=== PATIENT | male | born 1950 | race Caucasian/White ===

== ENCOUNTER 2017-05-21 18:08 | Emergency (ER) | payer BC, OTHER ==
[~2017-05-21] VITALS: Ht 180.3 cm; Wt 94.8 kg
[2017-05-21 18:08] VITALS: BP_SYST 145
[~2017-05-21 18:08] MED LIST: HYDR50TA3 PO; LISI40TA4 PO
--- NOTE | 2017-05-21 18:08 | NUR ---
Placed in room 04. Placed on monitoring specialist, blood pressure machine and pulse oximeter. To gown for exam. Side rails up. Report given to BISI Tijerina.
--- NOTE | 2017-05-21 18:08 | NUR ---
Pt report received from BISI Hickey. Pt states that while sitting down to eat dinner with his , he felt dizzy with cold sweats and layed his head down. Pt states "dizzy spell" lasted about 10 minutes, but denies LOC. Denies N/V, no c/o pain or discomfort at this time.
--- NOTE | 2017-05-21 19:05 | NUR ---
Patient stable, no signs of distress noted. Vital signs within therapeutic range. Will continue to monitor pt.
--- NOTE | 2017-05-21 19:30 | NUR ---
ER Dr. Nuno at bedside examining patient.
[2017-05-21 19:41] LABS: BASOPHILS # (AUTO) 0.1 K/uL (0.0-0.2); BASOPHILS % (AUTO) 0.6 % (0.0-2.0); EOSINOPHILS # (AUTO) 0.1 K/uL (0.0-0.4); EOSINOPHILS % (AUTO) 0.6 % (0.0-4.0); HEMATOCRIT 47.4 % (36-54); HEMOGLOBIN 15.7 g/dL (14.0-18.0); LYMPHOCYTES # (AUTO) 1.3 K/uL (1.0-5.5); LYMPHOCYTES % (AUTO) 11.7 % (20.5-51.5); MEAN CORPUSCULAR HEMOGLOBIN 31 pg (27-31); MEAN CORPUSCULAR HGB CONC 33 % (32-36); MEAN CORPUSCULAR VOLUME 95 fL (79.0-98.0); MONOCYTES # (AUTO) 0.6 K/uL (0.0-1.0); MONOCYTES % (AUTO) 5.3 % (1.7-9.3); NEUTROPHILS # (AUTO) 8.8 K/uL (1.8-7.7); NEUTROPHILS % (AUTO) 81.8 % (40.0-70.0); PLATELET COUNT (AUTO) 170 K/uL (130-430); RED CELL DISTRIBUTION WIDTH 12.2 % (9.0-15.0); WHITE BLOOD COUNT (AUTO) 10.9 K/uL (4.8-10.8)
[2017-05-21 19:42] LABS: CALCIUM 9.6 mg/dL (8.4-11.0); CREATININE 1.27 mg/dL (0.55-1.30); POTASSIUM 4.1 mmol/L (3.5-5.1)
[2017-05-21 19:47] LABS: ALBUMIN 4.1 g/dL (3.4-4.8); TOTAL BILIRUBIN 0.5 mg/dL (0.0-1.0)
--- NOTE | 2017-05-21 20:08 | NUR ---
Patient stable, no signs of distress noted. Vital signs within therapeutic range.
--- NOTE | 2017-05-21 20:40 | NUR ---
Orthostatic vital signs done. Lying down on bed: HR 66, O2 97%, RR 16, BP 120/65, temp 98.4 F. Standing up without assistance: HR 71, O2 98%, RR 16, BP 129/72, temp 98.4 F.
[2017-05-21 21:10] VITALS: BP_SYST 128
--- NOTE | 2017-05-21 21:10 | NUR ---
Patient given written and verbal discharge instructions and verbalizes understanding. ER MD discussed with patient the results and treatment provided. Patient in stable condition. ID arm band removed. Rx of given. Pain Scale 0/10. Opportunity for questions provided and answered.
== END 2017-05-21 21:10 | disposition home or self-care (01) ==
LOC: SED 18:08
DX: R55 Syncope and collapse (principal); I10 Essential (primary) hypertension
CPT/HCPCS: 36415; 80053; 83880; 84484; 85025; 93005; 99285

== ENCOUNTER 2021-08-28 06:42 | Observation (INO) | payer OTHER, SELFPAY ==
[~2021-08-28] VITALS: Ht 180.3 cm; Wt 90.7 kg
[~2021-08-28 06:42] MED LIST changes: -HYDR50TA3 PO; +HYDR50TA4 PO; +LISI40TA13 PO; -LISI40TA4 PO
[2021-08-28 06:43] VITALS: BP_SYST 153
[2021-08-28] MEDS ORDERED: ONDANSETRON HCL 4 MG/2 ML VIAL IVP ONE (07:00)
[2021-08-28] MEDS ORDERED: NITROGLYCERIN 1 INCH (GM) OINT. TD ONE (07:00)
[2021-08-28] MEDS ORDERED: MORPHINE 2 MG/ML INJ. SYRINGE IVP ONE (07:00)
[2021-08-28] MEDS ORDERED: ASPIRIN 81 MG TAB.CHEW PO ONE (07:00)
[2021-08-28 07:03] LABS: BASOPHILS % (AUTO) 0.5 % (0.0-2.0); EOSINOPHILS # (AUTO) 0.1 K/uL (0.0-0.4); EOSINOPHILS % (AUTO) 1.1 % (0.0-4.0); HEMATOCRIT 46.9 % (36-54); HEMOGLOBIN 16.3 g/dL (14.0-18.0); LYMPHOCYTES # (AUTO) 1.2 K/uL (1.0-5.5); LYMPHOCYTES % (AUTO) 16.7 % (20.5-51.5); MEAN CORPUSCULAR HEMOGLOBIN 33 pg (27-31); MEAN CORPUSCULAR HGB CONC 35 % (32-36); MEAN CORPUSCULAR VOLUME 94 fL (79.0-98.0); MONOCYTES # (AUTO) 0.5 K/uL (0.0-1.0); MONOCYTES % (AUTO) 7.4 % (1.7-9.3); NEUTROPHILS # (AUTO) 5.4 K/uL (1.8-7.7); NEUTROPHILS % (AUTO) 74.3 % (40.0-70.0); PLATELET COUNT (AUTO) 199 K/uL (130-430); RED BLOOD CELL COUNT(AUTO) 5.01 MIL/uL (4.2-6.2); RED CELL DISTRIBUTION WIDTH 12.7 % (9.0-15.0); WHITE BLOOD COUNT (AUTO) 7.3 K/uL (4.8-10.8)
[2021-08-28 07:57] LABS: ANION GAP -1 (5-15); CALCIUM 9.3 mg/dL (8.4-11.0); CHLORIDE 97 mmol/L (98-107); CREATININE 1.06 mg/dL (0.55-1.30); GLUCOSE 110 mg/dL (70-99); POTASSIUM 3.4 mmol/L (3.5-5.1); SODIUM SERUM 126 mmol/L (136-145); UREA NITROGEN, BLOOD 12 mg/dL (8-21)
[2021-08-28 08:03] LABS: ALANINE AMINOTRANSFERASE 39 U/L (12-78); ALBUMIN 4.3 g/dL (3.4-4.8); ASPARTATE AMINOTRANSFERASE 27 U/L (10-37); TOTAL BILIRUBIN 0.9 mg/dL (0.0-1.0)
[2021-08-28] MEDS ORDERED: LISI30TA36 PO (10:01)
[2021-08-28] MEDS ORDERED: AMLO10TA88 PO (10:01)
[2021-08-28] MEDS ORDERED: ASA81 PO (10:01)
[2021-08-28 12:00] VITALS: BP_SYST 129
[2021-08-28 12:19] VITALS: BP_SYST 129
[2021-08-28 17:10] VITALS: BP_SYST 136
[2021-08-28 20:00] VITALS: BP_SYST 150
[2021-08-29 08:00] VITALS: BP_SYST 147
[2021-08-29 08:16] LABS: ALANINE AMINOTRANSFERASE 39 U/L (12-78); ALBUMIN 3.7 g/dL (3.4-4.8); ANION GAP 8 (5-15); ASPARTATE AMINOTRANSFERASE 21 U/L (10-37); CALCIUM 9.4 mg/dL (8.4-11.0); CHLORIDE 102 mmol/L (98-107); GLUCOSE 95 mg/dL (70-99); POTASSIUM 4.3 mmol/L (3.5-5.1); SODIUM SERUM 139 mmol/L (136-145); THYROID STIMULATING HORMONE 1.24 uIu/mL (0.36-3.74); TOTAL BILIRUBIN 0.8 mg/dL (0.0-1.0); UREA NITROGEN, BLOOD 12 mg/dL (8-21)
[2021-08-29] MEDS ORDERED: amLODIPine BESYLATE 10 MG TABLET PO SCH (09:00)
[2021-08-29] MEDS ORDERED: ATORVASTATIN 20 MG TABLET PO SCH (09:00)
[2021-08-29] MEDS ORDERED: ASPIRIN 81 MG TAB.CHEW PO SCH (09:00)
[2021-08-29] MEDS ORDERED: lisinopriL 20 MG TABLET PO SCH (09:00)
[2021-08-29 09:15] LABS: CHOLESTEROL 146 mg/dL (<200); HDL CHOLESTEROL 47 mg/dL (>45); LDL CHOLESTEROL 81 mg/dL (<100); TRIGLYCERIDES 94 mg/dL (30-150)
[2021-08-29] MEDS ORDERED: LIP10 PO (10:19)
[2021-08-29 10:54] VITALS: BP_SYST 147
== END 2021-08-29 11:15 | disposition home or self-care (01) ==
LOC: SED 06:42 → STU 08:49
PROVIDERS: ADMIT Internal Medicine Hospice and Palliative Medicine; ATTEND Internal Medicine Hospice and Palliative Medicine
DX: R07.89 Other chest pain (principal); Z20.822 Contact with and (suspected) exposure to COVID-19; E87.1 Hypo-osmolality and hyponatremia; I10 Essential (primary) hypertension; G89.29 Other chronic pain; M54.9 Dorsalgia, unspecified; E78.5 Hyperlipidemia, unspecified; Z79.82 Long term (current) use of aspirin; Z79.899 Other long term (current) drug therapy; Z87.891 Personal history of nicotine dependence
CPT/HCPCS: 36415; 71045; 80053; 80061; 83880; 84443; 84484; 85025; 93005; 93306; 99285; G0378; J2270; J2405

== ENCOUNTER 2024-03-16 09:11 | Inpatient (IN) | payer OTHER ==
[2024-03-16] VITALS (7 sets, daily range): BP systolic 103–128; PULSE 50–126; RESP 16–18; TEMP 97.8–99; O2SAT 97–98
[~2024-03-16] VITALS: Ht 180.3 cm; Wt 86.4 kg
[~2024-03-16 09:11] MED LIST changes: +AMLO10TA88 PO; +ASA81 PO; -HYDR50TA4 PO; +LIP10 PO; +LISI30TA36 PO; -LISI40TA13 PO
[2024-03-16 09:41] LABS: EOSINOPHILS # (AUTO) 0.2 K/uL (0.0-0.4); NEUTROPHILS # (AUTO) 4.6 K/uL (1.8-7.7); PLATELET COUNT (AUTO) 163 K/uL (130-430)
[2024-03-16] MEDS: dilTIAZem HCL IVP 5 MG/ML VIAL IVP ONE (09:47)
[2024-03-16 09:53] LABS: BASOPHILS % (AUTO) 0.5 % (0.0-2.0); EOSINOPHILS % (AUTO) 2.4 % (0.0-4.0); HEMATOCRIT 50.2 % (36-54); HEMOGLOBIN 17.1 g/dL (14.0-18.0); LYMPHOCYTES # (AUTO) 1.7 K/uL (1.0-5.5); LYMPHOCYTES % (AUTO) 24.3 % (20.5-51.5); MEAN CORPUSCULAR HEMOGLOBIN 34 pg (27-31); MEAN CORPUSCULAR HGB CONC 34 % (32-36); MEAN CORPUSCULAR VOLUME 98 fL (79.0-98.0); MONOCYTES # (AUTO) 0.5 K/uL (0.0-1.0); MONOCYTES % (AUTO) 7.5 % (1.7-9.3); NEUTROPHILS % (AUTO) 65.3 % (40.0-70.0); RED BLOOD CELL COUNT(AUTO) 5.11 MIL/uL (4.2-6.2); RED CELL DISTRIBUTION WIDTH 13.3 % (9.0-15.0)
[2024-03-16 09:56] LABS: INR 1.1 (0.80-1.20); PROTHROMBIN TIME 11.7 SECS (9.5-12.5)
[2024-03-16 10:00] LABS: ANION GAP 9 (5-15); CALCIUM 9.7 mg/dL (8.4-11.0); CARBON DIOXIDE 32 mmol/L (23-29); CHLORIDE 103 mmol/L (98-107); CREATININE 1.06 mg/dL (0.55-1.30); GLUCOSE 96 mg/dL (74-106); POTASSIUM 3.7 mmol/L (3.5-5.1); SODIUM SERUM 144 mmol/L (136-145); UREA NITROGEN, BLOOD 10 mg/dL (8-21)
[2024-03-16] MEDS ORDERED: TADA5TAB13 PO (10:36)
[2024-03-16] MEDS ORDERED: ONDANSETRON HCL 4 MG/2 ML VIAL IVP PRN (11:00)
[2024-03-16] MEDS ORDERED: MORPHINE 2 MG/ML INJ. SYRINGE IVP PRN (11:00)
[2024-03-16] MEDS ORDERED: ALBUTEROL SULFATE 0.083% 2.5 MG/3 ML VIAL.NEB INH PRN (11:00)
[2024-03-16] MEDS ORDERED: HYDROcodone/ACETAMIN 10-325 MG TAB PO PRN (11:00)
[2024-03-16] MEDS ORDERED: METOPROLOL TARTRATE 5 MG/5 ML VIAL IVP PRN (11:00)
[2024-03-16] MEDS ORDERED: ACETAMINOPHEN 325 MG TABLET PO PRN (11:00)
[2024-03-16] MEDS ORDERED: HYDROcodone/ACETAMIN 5-325 MG TAB (NORCO/ VICODIN) PO PRN (11:00)
[2024-03-16] MEDS: METOPROLOL TARTRATE 25 MG TABLET PO ONE (12:58)
[2024-03-16] MEDS: ATORVASTATIN 10 MG TABLET PO ONE (16:33)
[2024-03-16] MEDS: ASPIRIN 81 MG TAB.CHEW PO ONE (16:33)
[2024-03-16] MEDS: METOPROLOL TARTRATE 25 MG TABLET PO SCH (20:19)
[2024-03-16] MEDS: APIXABAN 2.5 MG TABLET PO SCH (21:06)
[2024-03-17] VITALS (8 sets, daily range): BP systolic 110–128; PULSE 47–56; RESP 16–18; TEMP 98–98.6; O2SAT 95–98
[2024-03-17 05:57] LABS: BASOPHILS # (AUTO) 0.1 K/uL (0.0-0.2); BASOPHILS % (AUTO) 0.8 % (0.0-2.0); EOSINOPHILS # (AUTO) 0.2 K/uL (0.0-0.4); HEMATOCRIT 42.7 % (36-54); HEMOGLOBIN 14.8 g/dL (14.0-18.0); LYMPHOCYTES # (AUTO) 1.7 K/uL (1.0-5.5); LYMPHOCYTES % (AUTO) 25.6 % (20.5-51.5); MEAN CORPUSCULAR HEMOGLOBIN 34 pg (27-31); MEAN CORPUSCULAR HGB CONC 35 % (32-36); MEAN CORPUSCULAR VOLUME 97 fL (79.0-98.0); MONOCYTES # (AUTO) 0.6 K/uL (0.0-1.0); MONOCYTES % (AUTO) 8.5 % (1.7-9.3); NEUTROPHILS # (AUTO) 4.1 K/uL (1.8-7.7); NEUTROPHILS % (AUTO) 62.1 % (40.0-70.0); PLATELET COUNT (AUTO) 137 K/uL (130-430); RED BLOOD CELL COUNT(AUTO) 4.42 MIL/uL (4.2-6.2); RED CELL DISTRIBUTION WIDTH 13.1 % (9.0-15.0); WHITE BLOOD COUNT (AUTO) 6.6 K/uL (4.8-10.8)
[2024-03-17 06:37] LABS: ALANINE AMINOTRANSFERASE 34 U/L (12-78); ALBUMIN 3.4 g/dL (3.4-4.8); ANION GAP 9 (5-15); ASPARTATE AMINOTRANSFERASE 20 U/L (10-37); CALCIUM 8.6 mg/dL (8.4-11.0); CARBON DIOXIDE 27 mmol/L (23-29); CHLORIDE 105 mmol/L (98-107); CREATININE 0.89 mg/dL (0.55-1.30); GLUCOSE 86 mg/dL (74-106); POTASSIUM 3.4 mmol/L (3.5-5.1); SODIUM SERUM 141 mmol/L (136-145); TOTAL BILIRUBIN 1.2 mg/dL (0.0-1.0); TOTAL PROTEIN, SERUM 6.1 g/dL (6.4-8.3); UREA NITROGEN, BLOOD 10 mg/dL (8-21)
[2024-03-17] MEDS: TADALAFIL PO SCH (09:00)
[2024-03-17] MEDS: ASPIRIN 81 MG TAB.CHEW PO SCH (09:25)
[2024-03-17] MEDS: lisinopriL 20 MG TABLET PO SCH (09:25)
[2024-03-17] MEDS: ATORVASTATIN 10 MG TABLET PO SCH (09:25)
[2024-03-17] MEDS: POTASSIUM CHLORIDE 20 MEQ TABLET.ER PO ONE (11:43)
[2024-03-17] MEDS: FLECAINIDE ACETATE 50 MG TABLET (TAMBOCOR) PO SCH (13:15)
[2024-03-17] MEDS: FLECAINIDE ACETATE 50 MG TABLET (TAMBOCOR) PO ONE (16:52)
[2024-03-18] VITALS (8 sets, daily range): BP systolic 109–144; PULSE 47–64; RESP 16–18; TEMP 97.6–98.7; O2SAT 97–100
[2024-03-18 05:41] LABS: BASOPHILS # (AUTO) 0.1 K/uL (0.0-0.2); BASOPHILS % (AUTO) 0.9 % (0.0-2.0); EOSINOPHILS # (AUTO) 0.2 K/uL (0.0-0.4); EOSINOPHILS % (AUTO) 3.2 % (0.0-4.0); HEMATOCRIT 43.6 % (36-54); HEMOGLOBIN 15.3 g/dL (14.0-18.0); LYMPHOCYTES # (AUTO) 1.6 K/uL (1.0-5.5); LYMPHOCYTES % (AUTO) 27.4 % (20.5-51.5); MEAN CORPUSCULAR HEMOGLOBIN 34 pg (27-31); MEAN CORPUSCULAR HGB CONC 35 % (32-36); MEAN CORPUSCULAR VOLUME 97 fL (79.0-98.0); MONOCYTES # (AUTO) 0.5 K/uL (0.0-1.0); MONOCYTES % (AUTO) 8.1 % (1.7-9.3); NEUTROPHILS # (AUTO) 3.5 K/uL (1.8-7.7); NEUTROPHILS % (AUTO) 60.4 % (40.0-70.0); PLATELET COUNT (AUTO) 140 K/uL (130-430); RED BLOOD CELL COUNT(AUTO) 4.49 MIL/uL (4.2-6.2); RED CELL DISTRIBUTION WIDTH 13.2 % (9.0-15.0); WHITE BLOOD COUNT (AUTO) 5.9 K/uL (4.8-10.8)
[2024-03-18 06:19] LABS: ALANINE AMINOTRANSFERASE 30 U/L (12-78); ALBUMIN 3.4 g/dL (3.4-4.8); ANION GAP 12 (5-15); CALCIUM 8.8 mg/dL (8.4-11.0); CARBON DIOXIDE 25 mmol/L (23-29); CHLORIDE 104 mmol/L (98-107); CREATININE 0.81 mg/dL (0.55-1.30); GLUCOSE 83 mg/dL (74-106); POTASSIUM 3.7 mmol/L (3.5-5.1); SODIUM SERUM 141 mmol/L (136-145); TOTAL BILIRUBIN 1.3 mg/dL (0.0-1.0); TOTAL PROTEIN, SERUM 6.3 g/dL (6.4-8.3); UREA NITROGEN, BLOOD 14 mg/dL (8-21)
[2024-03-18] MEDS ORDERED: TADALAFIL PO SCH (09:00)
[2024-03-18] MEDS ORDERED: LISI20TA30 PO (13:05)
[2024-03-18] MEDS ORDERED: FLEC50TA2 PO (13:05)
[2024-03-18] MEDS ORDERED: APIX5TAB PO (13:05)
[2024-03-18 22:04] LABS: ASPARTATE AMINOTRANSFERASE 20 U/L (10-37)
== END 2024-03-18 13:15 | disposition home or self-care (01) | DRG 310 ==
LOC: SED 09:11 → STU 10:51
PROVIDERS: ADMIT Family Medicine; ATTEND Family Medicine
DX: I48.91 Unspecified atrial fibrillation (principal); I10 Essential (primary) hypertension; N40.0 Benign prostatic hyperplasia without lower urinary tract symptoms; E78.5 Hyperlipidemia, unspecified; Z79.82 Long term (current) use of aspirin; Z79.899 Other long term (current) drug therapy
CPT/HCPCS: 36415; 71045; 80048; 80053; 83880; 84484; 85025; 85610; 85730; 93005; 93306; 94760; 96374; 99291; G0378; J3490